=== PATIENT | female | born 1995 | race American Indian/Alaskan Native ===

== ENCOUNTER 2017-09-14 13:57 | Inpatient (IN) | payer MEDICAID ==
[2017-09-14] MEDS ORDERED: MAGNESIUM SULFATE 2GM/50ML 4 GM/100 ML BAG IV ONE (14:08)
[2017-09-14] MEDS ORDERED: NORMODYNE IV ONE ×3 (14:11→14:54)
[2017-09-14] MEDS ORDERED: MAGNESIUM SULFATE 2GM/50ML 2 GM/50 ML BAG IV ONE ×2 (14:22)
--- NOTE | 2017-09-14 14:40 | Emergency Department Report ---
ED General Adult HPI - General Chief complaint: Seizure Stated complaint: SEIZURE Time Seen by Provider: 09/14/17 14:20 Source: patient, family, EMS Mode of arrival: Stretcher Limitations: No Limitations - History of Present Illness Initial comments: Patient apparently suffered a witnessed generalized seizure. She is here with her or significant other. He states that they went to the OB doctor yesterday and the patient is corroborating this. They go to [facility]. They're confirming that they were told that there is no problem with this now 32 week gestation. They've had regular OB care. This is patient's first . She's never been told she had an elevated blood pressure during this . Patient denies a family history of seizures. She denies a personal history of seizures. -: Sudden Location: mouth (patient does complain of some tongue soreness) Radiation: non-radiation Quality: other Consistency: intermittent Improves with: none Worsens with: none Associated Symptoms: denies other symptoms Treatments Prior to Arrival: none ED Review of Systems ROS: Stated complaint: SEIZURE Other details as noted in HPI Constitutional: denies: chills, fever Eyes: denies: eye pain, eye discharge, vision change ENT: denies: ear pain, throat pain Respiratory: denies: cough, shortness of breath, wheezing Cardiovascular: denies: chest pain, palpitations Endocrine: no symptoms reported Gastrointestinal: denies: abdominal pain, nausea, diarrhea Genitourinary: denies: urgency, dysuria, discharge Musculoskeletal: denies: back pain, joint swelling, arthralgia Skin: denies: rash, lesions Neurological: denies: headache, weakness, paresthesias Psychiatric: denies: anxiety, depression Hematological/Lymphatic: denies: easy bleeding, easy bruising Other: States not feeling movement ED Past Medical Hx - Past Medical History Previous Medical History?: No - Surgical History Past Surgical History?: No - Social History Smoking Status: Never Smoker Substance Use Type: None ED Physical Exam - General Limitations: No Limitations General appearance: alert, anxious - Head Head exam: Present: atraumatic, normocephalic - Eye Eye exam: Present: normal appearance. Absent: scleral icterus - ENT ENT exam: Present: mucous membranes moist - Neck Neck exam: Present: normal inspection. Absent: tenderness, meningismus - Respiratory Respiratory exam: Present: normal lung sounds bilaterally. Absent: respiratory distress - Cardiovascular Cardiovascular Exam: Present: regular rate, normal rhythm. 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 Absent: tenderness - Extremities Exam Extremities exam: Present: normal inspection. Absent: pedal edema, calf tenderness - Back Exam Back exam: Present: normal inspection - Neurological Exam Neurological exam: Present: alert, oriented X3, CN II-XII intact. Absent: motor sensory deficit - Psychiatric Psychiatric exam: Present: normal affect, anxious - Skin Skin exam: Present: warm, dry, intact, normal color. Absent: rash ED Course Vital Signs 09/14/17 13:58 Temperature 98.2 F Pulse Rate 98 H Respiratory 16 Rate Blood Pressure 149/108 O2 Sat by Pulse 100 Oximetry - Reevaluation(s) Reevaluation #1: Patient was given labetalol and the first 4 g of magnesium. I immediately notified OB (Dr. Mcfadden's nurse alumni relations manager) the of findings and the need for monitoring. The nurse alumni relations manager stated to send the patient to L&D as soon as possible. 09/14/17 14:42 Reevaluation #2: Patient was transferred to L&D in stable condition. 09/14/17 14:43 Critical Care Time: Yes Critical care time in (mins) excluding proc time.: 35 Critical care attestation.: If time is entered above; I have spent that time in minutes in the direct care of this critically ill patient, excluding procedure time. ED Disposition Clinical Impression: Eclampsia, Seizure Disposition: DC-09 OP ADMIT IP TO THIS HOSP Is pt being admited?: Yes Does the pt Need Aspirin: No Condition: Stable Time of Disposition: 14:44
[2017-09-14] MEDS ORDERED: COLACE PO PRN (14:50)
[2017-09-14] MEDS ORDERED: ZOFRAN IV PRN ×2 (14:50→15:45)
[2017-09-14] MEDS ORDERED: ALUM-MAG HYDROX-SIMETH 200-200-20MG/5ML PO PRN (14:50)
[2017-09-14] MEDS ORDERED: TYLENOL PO PRN (14:50)
[2017-09-14] MEDS ORDERED: BENADRYL PO PRN (14:50)
[2017-09-14] MEDS ORDERED: MILK OF MAGNESIA PO PRN (14:50)
[2017-09-14] MEDS ORDERED: CALCIUM GLUCONATE IV ONE (14:52)
[2017-09-14] MEDS ORDERED: APRESOLINE IV PRN ×2 (14:52→18:24)
--- NOTE | 2017-09-14 14:59 | History and Physical Report ---
<CALDERON VALENZUELA - Last Filed: 09/14/17 15:11> History of Present Illness Date of examination: 09/14/17 Date of admission: 09/14/17 14:49 Chief complaint: arrived s/p seizure at home from ED (seizure witness by s/o), elevated b/p. no hx htn or pre-e History of present illness: ( records reviewed) reports JAMES x 3 days, routine visit yesterday with [facility], normotensive w / neg urine protein. began care @ 20 weeks with [facility] EDC 10/16/17 by LMP- 35+3 weeks Patient denies medical or surgical hx (EAB hx D&E in 2011 - noted on records not divulged by patient) HSV II + hx emotional concerns involving family and - per records, patient did not divulge this information. Past History Past Medical History: no pertinent history Past Surgical History: other (See HPI) Family/Genetic History: neural tube defect. denies: cystic fibrosis/trait Social history: lives with family, full code. denies: smoking, alcohol abuse, prescription drug abuse, IV drug use - Obstetrical History Expected Date of Delivery: 10/16/17 Actual Gestation: 35 Week(s) 3 Day(s) : 2 Para: 0 Hx # Term Pregnancies: 0 Number of Pregnancies: 0 Spontaneous Abortions: 0 Induced : 1 Number of Living Children: 0 Review of Systems All systems: negative Constitutional: other Gastrointestinal: nausea, vomiting (today after seizure) Neurological: lack of coordination, headaches, other (postictal) - Vital Signs Vital signs: Vital Signs Temp Pulse Resp BP Pulse Ox 98.2 F 98 H 16 149/108 100 09/14/17 13:58 09/14/17 13:58 09/14/17 13:58 09/14/17 13:58 09/14/17 13:58 Temp Pulse Resp BP Pulse Ox 98.2 F 87 16 153/104 98 09/14/17 13:58 09/14/17 14:57 09/14/17 14:13 09/14/17 14:54 09/14/17 14:57 Results All other labs normal. Assessment and Plan patient transferred from ED after eclamptic seizure at home, 22y/o @ 35+3 weeks, admission orders in EMR. Dr. Mcfadden consulted and after reviewing tracing - CAT 3 min variability, baseline 100 with, decision made to proceed with operative delivery. - Patient Problems (1) 35 weeks gestation of Current Visit: Yes Status: Acute (2) Eclampsia Current Visit: Yes Status: Acute <VERONICA MCFADDEN - Last Filed: 09/14/17 15:32> History of Present Illness Date of admission: 09/14/17 14:49 Medications and Allergies Active Meds: Active Medications Acetaminophen (Tylenol) 650 mg PO Q4H PRN PRN Reason: Pain MILD(1-3)/Fever >100.5/JAMES Al Hydrox/Mg Hydrox/Simethicone (Alum-Mag Hydrox-Simeth [id number]/5ml) 30 ml PO Q6H PRN PRN Reason: Indigestion Betamethasone Acet/Betameth SodPhos (Celestone Soluspan) 12 mg IM Q24HR KIMBERLY Stop: 09/16/17 10:01 Calcium Gluconate (Calcium Gluconate) 1,000 mg IV ONCE ONE Stop: 09/14/17 14:53 Diphenhydramine HCl (Benadryl) 25 mg PO Q6H PRN PRN Reason: Itching Docusate Sodium (Colace) 100 mg PO Q12H PRN PRN Reason: Constipation Fentanyl (Sublimaze) 50 mcg IV ONCE ONE Stop: 09/14/17 15:04 Lactated Ringer's (Lactated Ringers) 1,000 mls @ 125 mls/hr IV DIRECT KIMBERLY Magnesium Sulfate (Magnesium Sulfate 40gm/1000ml) 40 gm in 1,000 mls @ 50 mls/ hr IV TITR KIMBERLY; 2 GM/HR PRN Reason: Protocol Stop: 09/15/17 14:59 Oxytocin/Sodium Chloride (Pitocin/Ns 20 Unit/1000ml Drip) 20 units in 1,000 mls @ 0 mls/hr IV TITR KIMBERLY PRN Reason: As Directed Labetalol HCl (Normodyne) 20 mg IV ONCE ONE Stop: 09/14/17 14:55 Magnesium Hydroxide (Milk Of Magnesia) 30 ml PO QHS PRN PRN Reason: Laxative Effect Multivitamins/Iron/Calcium ( Vitamin) 1 each PO QDAY KIMBERLY Ondansetron HCl (Zofran) 4 mg IV Q6H PRN PRN Reason: Nausea And Vomiting - Vital Signs Vital signs: Vital Signs Temp Pulse Resp BP Pulse Ox 98.2 F 98 H 16 149/108 100 09/14/17 13:58 09/14/17 13:58 09/14/17 13:58 09/14/17 13:58 09/14/17 13:58 Temp Pulse Resp BP Pulse Ox 98.2 F 73 16 152/94 100 09/14/17 13:58 09/14/17 15:27 09/14/17 14:13 09/14/17 15:15 09/14/17 15:27 Results All other labs normal. Assessment and Plan 22yof [id number] eclamptic seizure witnessed by her , she a patient of [facility] , records now avaliable. THIAGO 10/16/2017. She now alert and appropriately responsive, Cat 3 FHT's, diagnosis explained to patient and her , cervix 0/0/-4, vtx by bedside US however, C/S discussed, dane encouraged and answered, pt agrees to proceed with c/s for cat 3 fht's remote from delivery. Consent signed by her ( patient received fentanyl her her JAMES).
[2017-09-14] MEDS ORDERED: MAGNESIUM SULFATE 40GM/1000ML 40 GM/1,000 ML BAG IV SCH (15:00)
[2017-09-14] MEDS ORDERED: PITOCin/NS 20 UNIT/1000ML DRIP 20 UNITS/1,000 ML BAG IV SCH ×2 (15:00→19:00)
[2017-09-14] MEDS ORDERED: LACTATED RINGERS 1,000 ML IV SCH ×2 (15:00→18:00)
[2017-09-14] MEDS ORDERED: SUBLIMAZE IV ONE (15:03)
[2017-09-14] MEDS ORDERED: SUBLIMAZE ONE (15:06)
[2017-09-14] MEDS ORDERED: BICITRA PO ONE (15:25)
[2017-09-14] MEDS ORDERED: PEPCID IV ONE (15:25)
[2017-09-14] MEDS ORDERED: REGLAN IV ONE (15:25)
--- NOTE | 2017-09-14 15:44 | Anesthesia Consultation ---
Anesthesia Consult and Med Hx Date of service: 09/14/17 - Airway Anesthetic Teeth Evaluation: Good ROM Head & Neck: Adequate Mental/Hyoid Distance: Adequate Mallampati Class: Class II - Pre-Operative Health Status ASA Pre-Surgery Classification: ASA3 Proposed Anesthetic Plan: General, Spinal - Cardiovascular System Hx Hypertension: Yes (PIH) - Central Nervous System Hx Seizures: Yes (earlier today - eclampsia) - Other Systems Hx Obesity: Yes (BMI 35.9)
[2017-09-14 15:45] LABS: Basophils % (Auto) 0.3 % (0.0-1.8); Eosinophils % (Auto) 0.1 % (0.0-4.3); Hematocrit 41.4 % (30.3-42.9); Hemoglobin 13.6 gm/dl (10.1-14.3); Mean Corpuscular HGB Conc 33 % (30-34); Mean Corpuscular Hemoglobin 31 pg (28-32); Mean Corpuscular Volume 95 fl (79-97); Platelet Count 111 K/mm3 (140-440); Red Blood Count 4.34 M/mm3 (3.65-5.03); Red Cell Distribution Width 13.8 % (13.2-15.2)
[2017-09-14] MEDS ORDERED: BENADRYL IV PRN (15:45)
[2017-09-14] MEDS ORDERED: PHENERGAN PR PRN (15:45)
[2017-09-14] MEDS ORDERED: NARCAN 0.4 MG/1 ML IV PRN ×2 (15:45→17:59)
[2017-09-14] MEDS ORDERED: MORPHINE IV PRN ×3 (15:45→17:59)
[2017-09-14] MEDS ORDERED: PHENERGAN PO PRN (15:45)
--- NOTE | 2017-09-14 15:45 | Anesthesia Day of Surgery ---
Anesthesia Day of Surgery - Day of Surgery Patient Examined: Yes Patient H&P Reviewed: Yes Patient is NPO: Yes (since 10AM)
[2017-09-14 15:57] LABS: Urine Drugs of Abuse Note Disclamer
[2017-09-14] MEDS ORDERED: ANCEF/STERILE WATER 2 GM/20 ML 2 GM/20 ML SYRINGE IV NR (16:00)
[2017-09-14] MEDS ORDERED: WATER FOR IRRIG STERILE IR ONE (16:00)
[2017-09-14] MEDS ORDERED: NACL 0.9% IR ONE (16:00)
[2017-09-14] MEDS ORDERED: SODIUM CHLORIDE FLUSH SYRINGE 10 ML IV SCH ×2 (16:00→18:00)
[2017-09-14] MEDS ORDERED: MORPHINE ONE (16:06)
[2017-09-14 16:13] LABS: Alanine Aminotransferase 14 units/L (7-56); Albumin 2.9 g/dL (3.9-5); Alkaline Phosphatase 91 units/L (35-129); Anion Gap 19 mmol/L; BUN/Creatinine Ratio 14; BUN/Creatinine Ratio 15; Blood Urea Nitrogen 15 mg/dL (7-17); Calcium 8.1 mg/dL (8.4-10.2); Carbon Dioxide 18 mmol/L (22-30); Chloride 105.8 mmol/L (98-107); Chloride 106.5 mmol/L (98-107); Glucose 72 mg/dL (65-100); Glucose 73 mg/dL (65-100); Potassium 4.9 mmol/L (3.6-5.0); Sodium 138 mmol/L (137-145); Sodium 139 mmol/L (137-145); Total Protein 5.7 g/dL (6.3-8.2)
[2017-09-14 16:14] LABS: Alanine Aminotransferase 14 units/L (7-56); Lactate Dehydrogenase 285 units/L (91-180); Uric Acid 9.9 mg/dL (3.5-7.6)
[2017-09-14 16:15] LABS: Alanine Aminotransferase 14 units/L (7-56); Albumin/Globulin Ratio 1.2 %; Alkaline Phosphatase 89 units/L (35-129); Total Protein 5.6 g/dL (6.3-8.2)
[2017-09-14 16:17] LABS: Bilirubin,Direct < 0.2 mg/dL (0-0.2)
[2017-09-14 16:29] LABS: Bilirubin,Urine NEG (Negative); Blood,Urine SM (Negative); Ketones,Urine NEG (Negative); Leukocyte Esterase,Urine NEG (Negative); Nitrite,Urine NEG (Negative); Urobilinogen,Urine < 2.0 mg/dL (<2.0)
[2017-09-14 16:31] LABS: Protein,Urine >500 mg/dL (Negative)
[2017-09-14] MEDS ORDERED: ZOFRAN ONE (16:38)
[2017-09-14] MEDS ORDERED: NEO SYNEPHRINE/NS Syringe(OR USE) IV ONE (17:00)
[2017-09-14 17:51] LABS: ISTAT Base Excess -11; ISTAT DEVICE 0; ISTAT HCO3 15.6; ISTAT PH 7.271 (7.35-7.45); ISTAT PO2 103 (80-105); ISTAT SO2 97; ISTAT TCO2 17
--- NOTE | 2017-09-14 17:57 | Post Operative Note ---
Pre-op diagnosis: C/S, eclampsia, NRFHT Post-op diagnosis: same Procedure: delivery, Low uterine transverse Anesthesia: spinal Surgeon: VERONICA RESENDIZ Estimated blood loss: other (800) Pathology: list (placenta) Specimen disposition: to lab Condition: critical Disposition: ICU
[2017-09-14] MEDS ORDERED: TUCKS PAD TP PRN (17:59)
[2017-09-14] MEDS ORDERED: PERCOCET 5/325 PO PRN (17:59)
[2017-09-14] MEDS ORDERED: LANSINOH TP PRN (17:59)
[2017-09-14] MEDS ORDERED: XANAX PO PRN (17:59)
[2017-09-14] MEDS ORDERED: DULCOLAX PR PRN (17:59)
[2017-09-14] MEDS ORDERED: ANCEF/NS 1 GM/50 ML 1 GM/50 ML BAG IV SCH (18:00)
--- NOTE | 2017-09-14 19:55 | Operative Report ---
Operative Report Operative Report: Date: 09/14/2017 Preoperative diagnosis: 1. Intrauterine at 35 weeks 2. Eclamptic seizure 3. No reassuring heart rate tracing with unfavorable cervix Postoperative diagnosis: 1. Intrauterine at 35 weeks 2. Eclamptic seizure 3. No reassuring heart rate tracing with unfavorable cervix 4. Intraoperative seizure Procedure: Low uterine transverse incision for delivery Surgeon: Melissa Mcfadden MD [employer] Developer: Yoana Dobbs Anesthesia: Spinal Anesthesiologist: Julio Rasheed M.D. Estimated blood loss: 800 mL Urine out: [] mL Findings: Live born female infant. Weight 4 lbs. 9 oz. Apgars 6 at 1 minute and 8 at 9 minutes. Grossly normal uterus. tubes and ovaries. Procedure: After risk, benefits, complications, consequences and alternatives for this procedure were discussed with patient and consents were reviewed and signed, she was taken to the OR where spinal anesthesia was placed. She was then placed in the left lateral tilt position, and prepped and draped in the usual sterile fashion. Timeout was performed, and an appropriate level of anesthesia was noted, a Pfannenstiel incision was made and extended to the fascia which was incised and extended in the lateral directions. The overlying fascia was sharply dissected away from the underlying rectus muscles in the superior and inferior directions. The midline was entered bluntly. The vesicouterine fold was incised and with blunt dissection the bladder flap was created. A transverse incision was made in the lower uterine segment and extended in superiolateral direction with finger fractionation. Light meconium fluid was noted. The infant was delivered from cephalic position. Mouth and nose were bulb suctioned. Cord was doubly clamped and cut. The infant was given to /resuscitation team present. The placenta was manually extracted. The uterus was then exteriorized and cleared of any further products of conception or placental tissue. The incision was reapproximated using 0 Vicryl in a running interlocking stitch. Grossly normal uterus, tubes and ovaries were noted. Once hemostasis was noted, the uterus was allowed back into the pelvic cavity. The pelvis was irrigated with warm normal saline. Again hemostasis was noted . Surgicel applied for further hemostasis. Interceed was then placed to prevent adhesions. Then attention was turned to the rectus muscles. At this point patient began to have a seizure. Rectus muscles were approximated using 0 Vicryl in 3 interrupted simple stitches. Once hemostasis was noted, the fascia was reapproximated using 0 Vicryl and some running stitch. Once hemostasis was noted skin incision was reapproximated using surgical stainless steel rianna. Counts were correct 3. The patient was taken to the intensive care unit.
[2017-09-14 21:22] LABS: Basophils % (Auto) 0.1 % (0.0-1.8); Hematocrit 36.7 % (30.3-42.9); Hemoglobin 12.3 gm/dl (10.1-14.3); Mean Corpuscular HGB Conc 34 % (30-34); Mean Corpuscular Hemoglobin 32 pg (28-32); Mean Corpuscular Volume 96 fl (79-97); Platelet Count 103 K/mm3 (140-440); Red Blood Count 3.84 M/mm3 (3.65-5.03); Red Cell Distribution Width 13.9 % (13.2-15.2)
[2017-09-14 21:47] LABS: Alanine Aminotransferase 13 units/L (7-56); Albumin 2.8 g/dL (3.9-5); Albumin/Globulin Ratio 1.2 %; Alkaline Phosphatase 79 units/L (35-129); Anion Gap 19 mmol/L; BUN/Creatinine Ratio 14; Blood Urea Nitrogen 14 mg/dL (7-17); Calcium 7.7 mg/dL (8.4-10.2); Carbon Dioxide 18 mmol/L (22-30); Chloride 105.3 mmol/L (98-107); Glucose 70 mg/dL (65-100); Sodium 137 mmol/L (137-145); Total Protein 5.2 g/dL (6.3-8.2)
[2017-09-14] MEDS ORDERED: BENADRYL IV ONE (23:06)
[2017-09-14] MEDS: PROCARDIA XL PO SCH (23:21)
[2017-09-15] MEDS ORDERED: D5LR 1,000 ML IV SCH (00:01)
[2017-09-15] MEDS: ceFAZolin 1 GM in NACL 0.9% 20 ML IV SCH ×2 (00:20→08:00)
--- NOTE | 2017-09-15 07:46 | Progress Note ---
Assessment and Plan - Patient Problems (1) delivery delivered Onset Date: ~09/14/17 Current Visit: Yes Status: Acute Plan to address problem: Pt requesting to advance diet Will start with liquids Lungs clear bilateral BS present Dressing D&I Will remove later today. (2) Eclampsia Onset Date: ~09/14/17 Current Visit: Yes Status: Acute Plan to address problem: No reported seizure activity since surgery yesterday Pt denies JAMES, blurred vision, chest pain this AM. BPs remain elevated. last Apresoline given @ 0500 this AM. Consulted with Will give procardia XL dose now and continue as ordered. MGSO4 to continue to complete 24hr therapy. Next Mag level due 0900. Pt's mom present in room. Discussed eclampsia and the events we are trying to prevent happening: another seizure, stroke. All questions were addressed. consulted Will advance diet as tolerated. Subjective - Subjective Date of service: 09/15/17 (pt remains in Unit) Patient reports: voiding normally (armstrong cath), flatus : doing well Objective - Vital Signs Latest vital signs: Vital Signs Temp Pulse Pulse Resp BP BP Pulse Ox 09/15/17 07:21 153/94 99 09/15/17 07:11 89 14 153/94 98 09/15/17 07:01 89 14 153/94 98 09/15/17 06:51 88 14 150/96 98 09/15/17 06:41 87 15 150/96 98 09/15/17 06:31 90 16 152/93 98 09/15/17 06:21 89 16 152/93 98 09/15/17 06:11 90 19 159/90 98 09/15/17 06:01 90 16 159/90 98 09/15/17 05:51 91 H 13 154/105 99 09/15/17 05:41 92 H 14 154/105 99 09/15/17 05:31 92 H 18 146/92 98 09/15/17 05:21 92 H 17 154/105 99 09/15/17 05:14 89 154/105 09/15/17 05:11 88 15 154/105 98 09/15/17 05:01 87 17 164/107 98 09/15/17 04:51 91 H 14 155/106 98 09/15/17 04:41 91 H 15 155/106 98 09/15/17 04:31 91 H 15 154/106 97 09/15/17 04:21 92 H 14 154/106 98 09/15/17 04:11 91 H 15 149/95 98 09/15/17 04:01 90 18 160/106 99 09/15/17 04:00 90 100 09/15/17 03:51 149/95 98 09/15/17 03:41 96 H 22 149/95 98 09/15/17 03:31 88 19 154/101 99 09/15/17 03:20 96 H 19 154/101 99 09/15/17 03:11 95 H 20 154/92 100 09/15/17 03:01 100 H 18 154/92 99 09/15/17 02:51 154/92 98 09/15/17 02:41 147/100 99 09/15/17 02:31 147/100 99 09/15/17 02:21 97 H 21 147/100 99 09/15/17 02:11 86 18 147/100 99 09/15/17 02:00 94 H 14 145/96 99 09/15/17 01:51 97 H 15 145/96 96 09/15/17 01:40 87 16 145/96 98 09/15/17 01:31 86 17 146/93 98 09/15/17 01:20 85 17 146/93 99 09/15/17 01:11 86 18 143/86 98 09/15/17 01:00 85 17 155/100 98 09/15/17 00:51 95 H 16 143/86 99 09/15/17 00:40 89 17 143/86 99 09/15/17 00:31 86 16 150/102 98 09/15/17 00:20 97 H 21 149/103 100 09/15/17 00:11 85 19 150/102 100 09/15/17 00:01 105 H 21 150/102 99 09/14/17 23:51 85 12 137/98 97 09/14/17 23:40 88 12 137/98 100 09/14/17 23:31 90 12 134/86 100 09/14/17 23:21 91 H 9 L 134/86 100 09/14/17 23:11 87 14 134/86 98 09/14/17 23:01 90 17 134/86 99 09/14/17 23:00 103 H 18 100 09/14/17 22:51 89 15 134/86 98 09/14/17 22:41 87 16 134/86 98 09/14/17 22:31 85 17 161/104 98 17 22:21 81 15 138/86 100 09/14/17 22:11 83 10 L 161/104 99 09/14/17 22:00 84 16 161/104 98 09/14/17 21:51 87 13 156/101 100 09/14/17 21:49 83 156/101 99 17 21:31 86 13 156/101 99 09/14/17 21:21 79 11 L 156/101 100 09/14/17 21:11 81 17 156/101 99 09/14/17 21:01 73 13 156/101 98 09/14/17 20:57 77 15 150/104 98 09/14/17 20:51 89 16 148/96 97 09/14/17 20:41 88 18 150/104 98 09/14/17 20:31 75 15 150/104 99 09/14/17 20:21 72 15 150/104 98 09/14/17 20:11 71 10 L 150/104 100 17 20:01 74 14 150/104 97 09/14/17 20:00 98 09/14/17 19:58 99 17 19:51 74 16 134/95 99 17 19:41 68 16 134/95 98 17 19:31 82 12 139/88 99 17 19:21 77 18 137/86 98 09/14/17 19:11 77 16 137/86 99 17 19:01 76 24 136/91 97 17 18:51 68 13 128/85 98 17 18:41 69 16 129/83 100 17 18:31 73 17 134/88 98 17 18:28 97 17 18:21 73 19 134/88 98 17 18:16 67 18 98 17 18:11 74 16 134/88 99 17 18:01 73 15 134/88 100 17 17:51 77 20 126/73 97 09/14/17 17:41 82 14 126/73 97 09/14/17 17:31 72 16 126/73 99 09/14/17 17:21 74 16 126/73 99 09/14/17 17:17 97 09/14/17 16:02 70 100 09/14/17 16:01 73 138/82 09/14/17 16:00 77 90 09/14/17 15:57 64 100 09/14/17 15:56 65 179/105 09/14/17 15:52 79 100 09/14/17 15:50 67 168/107 09/14/17 15:48 103 H 86 09/14/17 15:47 83 98 09/14/17 15:46 80 157/95 09/14/17 15:42 68 100 09/14/17 15:40 67 165/113 09/14/17 15:37 72 100 09/14/17 15:32 75 100 09/14/17 15:27 73 100 09/14/17 15:22 75 100 09/14/17 15:17 75 100 09/14/17 15:15 76 152/94 09/14/17 15:12 86 139/93 100 09/14/17 15:07 75 100 09/14/17 15:06 75 150/95 09/14/17 15:04 63 92 09/14/17 15:02 78 100 09/14/17 15:01 85 155/99 09/14/17 14:57 87 98 09/14/17 14:54 85 153/104 09/14/17 14:13 92 H 16 148/94 100 09/14/17 13:58 98.2 F 98 H 16 149/108 100 Intake and Output 09/14/17 09/15/17 09/15/17 22:59 06:59 14:59 Intake Total 150 Output Total 300 820 Balance -300 -820 150 Intake: Oral 150 Output: Urine 300 820 Indwelling Catheter 250 820 Uretheral (Armstrong) 50 Other: Total, Intake Amount 150 Total, Output Amount 250 420 Voiding Method Indwelling Catheter Indwelling Catheter Estimated Blood Loss 800 - Exam Breasts: Present: normal Cardiovascular: Present: Regular rate Lungs: Present: Clear to auscultation, Normal air movement Abdomen: Present: normal appearance, soft, normal bowel sounds Uterus: Present: normal, fundal height below umbilicus Extremities: Present: edema Deep Tendon Reflex Grade: Normal but brisk +3 Incision: Present: normal, dry, intact, dressed - Labs Labs: Abnormal lab results 09/14/17 09/14/17 09/14/17 Range/Units 15:23 15:23 15:23 Plt Count 111 L (140-440) K/mm3 [place] % (Auto) 8.9 H (0.0-7.3) % Seg Neutrophils % (40.0-70.0) % Seg Neutrophils # (1.8-7.7) K/mm3 POC ABG pH (7.35-7.45) POC ABG pCO2 (35-45) Carbon Dioxide 18 L (22-30) mmol/L Uric Acid (3.5-7.6) mg/dL Calcium 8.1 L (8.4-10.2) mg/dL Magnesium (1.7-2.3) mg/dL Lactate Dehydrogenase (91-180) units/L Total Protein 5.6 L (6.3-8.2) g/dL Albumin 3.0 L (3.9-5) g/dL 09/14/17 09/14/17 09/14/17 Range/Units 15:23 15:23 17:34 Plt Count (140-440) K/mm3 [place] % (Auto) (0.0-7.3) % Seg Neutrophils % (40.0-70.0) % Seg Neutrophils # (1.8-7.7) K/mm3 POC ABG pH 7.271 L (7.35-7.45) POC ABG pCO2 34.0 L (35-45) Carbon Dioxide 18 L (22-30) mmol/L Uric Acid 9.9 H (3.5-7.6) mg/dL Calcium 8.1 L (8.4-10.2) mg/dL Magnesium (1.7-2.3) mg/dL Lactate Dehydrogenase 285 H (91-180) units/L Total Protein 5.7 L (6.3-8.2) g/dL Albumin 2.9 L (3.9-5) g/dL 09/14/17 09/14/17 09/15/17 Range/Units 20:53 20:53 02:46 Plt Count 103 L (140-440) K/mm3 [place] % (Auto) (0.0-7.3) % Seg Neutrophils % 79.4 H (40.0-70.0) % Seg Neutrophils # 7.9 H (1.8-7.7) K/mm3 POC ABG pH (7.35-7.45) POC ABG pCO2 (35-45) Carbon Dioxide 18 L (22-30) mmol/L Uric Acid (3.5-7.6) mg/dL Calcium 7.7 L (8.4-10.2) mg/dL Magnesium 5.20 H 6.60 H (1.7-2.3) mg/dL Lactate Dehydrogenase (91-180) units/L Total Protein 5.2 L (6.3-8.2) g/dL Albumin 2.8 L (3.9-5) g/dL
[2017-09-15] MEDS ORDERED: TYLENOL PO PRN (08:06)
--- NOTE | 2017-09-15 08:40 | Progress Note ---
Subjective Date of service: 09/15/17 Interval history: 1st POD after Patient is in the bed in ICU. Alert, oriented. Pain is well controlled with pain meds. Blood pressure elevated but stable. Has not ambulated yet due to Mg2SO4 infusion. No residual neurological deficit. No anesthesia complications Objective - Constitutional Vitals: Vital Signs - 12hr 09/14/17 09/14/17 09/14/17 20:41 20:51 20:57 Pulse Rate 88 89 77 Pulse Rate [ From Monitor] Respiratory 18 16 15 Rate Blood Pressure 150/104 148/96 150/104 O2 Sat by Pulse 98 97 98 Oximetry 09/14/17 09/14/17 09/14/17 21:01 21:11 21:21 Pulse Rate 73 81 79 Pulse Rate [ From Monitor] Respiratory 13 17 11 L Rate Blood Pressure 156/101 156/101 156/101 O2 Sat by Pulse 98 99 100 Oximetry 09/14/17 09/14/17 09/14/17 21:31 21:49 21:51 Pulse Rate 86 83 87 Pulse Rate [ From Monitor] Respiratory 13 13 Rate Blood Pressure 156/101 156/101 156/101 O2 Sat by Pulse 99 99 100 Oximetry 09/14/17 09/14/17 09/14/17 22:00 22:11 22:21 Pulse Rate 84 83 81 Pulse Rate [ From Monitor] Respiratory 16 10 L 15 Rate Blood Pressure 161/104 161/104 138/86 O2 Sat by Pulse 98 99 100 Oximetry 09/14/17 09/14/17 09/14/17 22:31 22:41 22:51 Pulse Rate 85 87 89 Pulse Rate [ From Monitor] Respiratory 17 16 15 Rate Blood Pressure 161/104 134/86 134/86 O2 Sat by Pulse 98 98 98 Oximetry 09/14/17 09/14/17 09/14/17 23:00 23:01 23:11 Pulse Rate 90 87 Pulse Rate [ 103 H From Monitor] Respiratory 18 17 14 Rate Blood Pressure 134/86 134/86 O2 Sat by Pulse 100 99 98 Oximetry 09/14/17 09/14/17 09/14/17 23:21 23:31 23:40 Pulse Rate 91 H 90 88 Pulse Rate [ From Monitor] Respiratory 9 L 12 12 Rate Blood Pressure 134/86 134/86 137/98 O2 Sat by Pulse 100 100 100 Oximetry 12/09/15/17 09/15/17 23:51 00:01 00:11 Pulse Rate 85 105 H 85 Pulse Rate [ From Monitor] Respiratory 12 21 19 Rate Blood Pressure 137/98 150/102 150/102 O2 Sat by Pulse 97 99 100 Oximetry 09/15/17 09/15/17 09/15/17 00:20 00:31 00:40 Pulse Rate 97 H 86 89 Pulse Rate [ From Monitor] Respiratory 21 16 17 Rate Blood Pressure 149/103 150/102 143/86 O2 Sat by Pulse 100 98 99 Oximetry 09/15/17 09/15/17 09/15/17 00:51 01:00 01:11 Pulse Rate 95 H 85 86 Pulse Rate [ From Monitor] Respiratory 16 17 18 Rate Blood Pressure 143/86 155/100 143/86 O2 Sat by Pulse 99 98 98 Oximetry 09/15/17 09/15/17 09/15/17 01:20 01:31 01:40 Pulse Rate 85 86 87 Pulse Rate [ From Monitor] Respiratory 17 17 16 Rate Blood Pressure 146/93 146/93 145/96 O2 Sat by Pulse 99 98 98 Oximetry 09/15/17 09/15/17 09/15/17 01:51 02:00 02:11 Pulse Rate 97 H 94 H 86 Pulse Rate [ From Monitor] Respiratory 15 14 18 Rate Blood Pressure 145/96 145/96 147/100 O2 Sat by Pulse 96 99 99 Oximetry 09/15/17 09/15/17 09/15/17 02:21 02:31 02:41 Pulse Rate 97 H Pulse Rate [ From Monitor] Respiratory 21 Rate Blood Pressure 147/100 147/100 147/100 O2 Sat by Pulse 99 99 99 Oximetry 09/15/17 09/15/17 09/15/17 02:51 03:01 03:11 Pulse Rate 100 H 95 H Pulse Rate [ From Monitor] Respiratory 18 20 Rate Blood Pressure 154/92 154/92 154/92 O2 Sat by Pulse 98 99 100 Oximetry 09/15/17 09/15/17 09/15/17 03:20 03:31 03:41 Pulse Rate 96 H 88 96 H Pulse Rate [ From Monitor] Respiratory 19 19 22 Rate Blood Pressure 154/101 154/101 149/95 O2 Sat by Pulse 99 99 98 Oximetry 09/15/17 09/15/17 09/15/17 03:51 04:00 04:01 Pulse Rate 90 Pulse Rate [ 90 From Monitor] Respiratory 18 Rate Blood Pressure 149/95 160/106 O2 Sat by Pulse 98 100 99 Oximetry 09/15/17 09/15/17 09/15/17 04:11 04:21 04:31 Pulse Rate 91 H 92 H 91 H Pulse Rate [ From Monitor] Respiratory 15 14 15 Rate Blood Pressure 149/95 154/106 154/106 O2 Sat by Pulse 98 98 97 Oximetry 09/15/17 09/15/17 09/15/17 04:41 04:51 05:01 Pulse Rate 91 H 91 H 87 Pulse Rate [ From Monitor] Respiratory 15 14 17 Rate Blood Pressure 155/106 155/106 164/107 O2 Sat by Pulse 98 98 98 Oximetry 09/15/17 09/15/17 09/15/17 05:11 05:14 05:21 Pulse Rate 88 89 92 H Pulse Rate [ From Monitor] Respiratory 15 17 Rate Blood Pressure 154/105 154/105 154/105 O2 Sat by Pulse 98 99 Oximetry 09/15/17 09/15/17 09/15/17 05:31 05:41 05:51 Pulse Rate 92 H 92 H 91 H Pulse Rate [ From Monitor] Respiratory 18 14 13 Rate Blood Pressure 146/92 154/105 154/105 O2 Sat by Pulse 98 99 99 Oximetry 09/15/17 09/15/17 09/15/17 06:01 06:11 06:21 Pulse Rate 90 90 89 Pulse Rate [ From Monitor] Respiratory 16 19 16 Rate Blood Pressure 159/90 159/90 152/93 O2 Sat by Pulse 98 98 98 Oximetry 09/15/17 09/15/17 09/15/17 06:31 06:41 06:51 Pulse Rate 90 87 88 Pulse Rate [ From Monitor] Respiratory 16 15 14 Rate Blood Pressure 152/93 150/96 150/96 O2 Sat by Pulse 98 98 98 Oximetry 09/15/17 09/15/17 09/15/17 07:01 07:11 07:21 Pulse Rate 89 89 Pulse Rate [ From Monitor] Respiratory 14 14 Rate Blood Pressure 153/94 153/94 153/94 O2 Sat by Pulse 98 98 99 Oximetry - Labs CBC & Chem 7: 09/14/17 20:53 09/14/17 20:53 Labs: Abnormal lab results 09/14/17 09/14/17 09/14/17 Range/Units 15:23 15:23 15:23 Plt Count 111 L (140-440) K/mm3 [place] % (Auto) 8.9 H (0.0-7.3) % Seg Neutrophils % (40.0-70.0) % Seg Neutrophils # (1.8-7.7) K/mm3 POC ABG pH (7.35-7.45) POC ABG pCO2 (35-45) Carbon Dioxide 18 L (22-30) mmol/L Uric Acid (3.5-7.6) mg/dL Calcium 8.1 L (8.4-10.2) mg/dL Magnesium (1.7-2.3) mg/dL Lactate Dehydrogenase (91-180) units/L Total Protein 5.6 L (6.3-8.2) g/dL Albumin 3.0 L (3.9-5) g/dL 09/14/17 09/14/17 09/14/17 Range/Units 15:23 15:23 17:34 Plt Count (140-440) K/mm3 [place] % (Auto) (0.0-7.3) % Seg Neutrophils % (40.0-70.0) % Seg Neutrophils # (1.8-7.7) K/mm3 POC ABG pH 7.271 L (7.35-7.45) POC ABG pCO2 34.0 L (35-45) Carbon Dioxide 18 L (22-30) mmol/L Uric Acid 9.9 H (3.5-7.6) mg/dL Calcium 8.1 L (8.4-10.2) mg/dL Magnesium (1.7-2.3) mg/dL Lactate Dehydrogenase 285 H (91-180) units/L Total Protein 5.7 L (6.3-8.2) g/dL Albumin 2.9 L (3.9-5) g/dL 09/14/17 09/14/17 09/15/17 Range/Units 20:53 20:53 02:46 Plt Count 103 L (140-440) K/mm3 [place] % (Auto) (0.0-7.3) % Seg Neutrophils % 79.4 H (40.0-70.0) % Seg Neutrophils # 7.9 H (1.8-7.7) K/mm3 POC ABG pH (7.35-7.45) POC ABG pCO2 (35-45) Carbon Dioxide 18 L (22-30) mmol/L Uric Acid (3.5-7.6) mg/dL Calcium 7.7 L (8.4-10.2) mg/dL Magnesium 5.20 H 6.60 H (1.7-2.3) mg/dL Lactate Dehydrogenase (91-180) units/L Total Protein 5.2 L (6.3-8.2) g/dL Albumin 2.8 L (3.9-5) g/dL
[2017-09-15] MEDS ORDERED: PITOCin/NS 20 UNIT/1000ML DRIP 20 UNITS/1,000 ML BAG IV SCH (09:00)
[2017-09-15] MEDS ORDERED: PRENATAL VITAMIN PO SCH (10:00)
[2017-09-15] MEDS ORDERED: CELESTONE SOLUSPAN IM SCH (10:00)
--- NOTE | 2017-09-15 10:27 | Event Note ---
Date: 09/15/17 ([facility] note) As per 's order stop MGSO4 Mag Level >7 Stop Pitocin. Start D5LR as maintenance fluid.
--- NOTE | 2017-09-15 11:01 | Consultation ---
History of Present Illness - Reason for Consult Consult date: 09/15/17 Seizure secondary to pre-eclampsia Requesting physician: VERONICA RESENDIZ - History of Present Illness 22 y/o female admitted with pre-eclampsia. Had done secondary to seizure activity. Given Mag in mother baby and some after . Given post-ictal state, OB concerned so asked for transfer and monitoring to ICU. Patient, today is awake and alert. On room air. Elevated mag levels but still has normal neuro function and good reflexes. No further seizures. Past History Social history: lives with family, full code. denies: smoking, alcohol abuse, prescription drug abuse, IV drug use Medications and Allergies Allergies Allergy/AdvReac Type Severity Reaction Status Date / Time No Known Allergies Allergy Verified 09/14/17 15:28 Active Meds: Active Medications Acetaminophen (Tylenol) 650 mg PO Q4H PRN PRN Reason: Pain, Mild (1-3) Alprazolam (Xanax) 0.25 mg PO Q8H PRN PRN Reason: Anxiety Bisacodyl (Dulcolax) 10 mg [place] QDAY PRN PRN Reason: constipation unrelieved by MOM Hydralazine HCl (Apresoline) 10 mg IV ONCE PRN PRN Reason: Hypertension Last Admin: 09/15/17 05:14 Dose: 10 mg Magnesium Sulfate (Magnesium Sulfate 40gm/1000ml) 40 gm in 1,000 mls @ 50 mls/ hr IV TITR KIMBERLY; 2 GM/HR PRN Reason: Protocol Stop: 09/15/17 14:59 Last Admin: 09/14/17 17:44 Dose: 2 gm/hr, 50 mls/hr Dextrose/Lactated Ringer's (D5lr) 1,000 mls @ 50 mls/hr IV DIRECT KIMBERLY Ketorolac Tromethamine (Toradol) 30 mg IV Q6H PRN PRN Reason: Pain, Moderate (4-6) Stop: 09/19/17 15:45 Magnesium Hydroxide (Milk Of Magnesia) 30 ml PO QHS PRN PRN Reason: Laxative Effect Morphine Sulfate (Morphine) 2 mg IV Q4H PRN PRN Reason: Pain, Moderate (4-6) Morphine Sulfate (Morphine) 4 mg IV Q4H PRN PRN Reason: Pain , Severe (7-10) Multi-Ingredient Ointment (Lansinoh) 1 applic TP PRN PRN PRN Reason: dryness/cracking Naloxone HCl (Narcan 0.4 Mg/1 Ml) 0.1 mg IV Q2MIN PRN PRN Reason: Res Rate </= 8 or 02 SAT < 92% Nifedipine (Procardia Xl) 30 mg PO Q12HR [facility] Last Admin: 09/14/17 23:21 Dose: Not Given Ondansetron HCl (Zofran) 4 mg IV Q6H PRN PRN Reason: Nausea And Vomiting Last Admin: 09/14/17 22:13 Dose: 4 mg Oxycodone/Acetaminophen (Percocet 5/325) 2 tab PO Q6H PRN PRN Reason: Pain, Moderate (4-6) Promethazine HCl (Phenergan) 25 mg PO Q6H PRN PRN Reason: Nausea And Vomiting Promethazine HCl (Phenergan) 25 mg MI Q6H PRN PRN Reason: Nausea And Vomiting Sodium Chloride (Sodium Chloride Flush Syringe 10 Ml) 10 ml IV PRN [facility] Witch [place]/Glycerin (Tucks Pad) 1 each TP PRN PRN PRN Reason: Hemorrhoids/cleansing/soothing Review of Systems All systems: negative Exam - Constitutional Vitals: Temp Pulse Resp BP Pulse Ox 98.2 F 89 14 153/94 99 09/14/17 13:58 09/15/17 07:11 09/15/17 07:11 09/15/17 07:21 09/15/17 07:21 General appearance: Present: no acute distress, well-nourished, obese - EENT Eyes: Present: PERRL, EOM intact ENT: hearing intact, clear oral mucosa, dentition normal - Neck Neck: Present: supple, normal ROM - Respiratory Respiratory effort: normal Respiratory: bilateral: CTA - Cardiovascular Rhythm: regular Heart Sounds: Present: S1 & S2 - Extremities Extremities: no ischemia, pulses intact, pulses symmetrical Peripheral Pulses: within normal limits - Abdominal General gastrointestinal: Present: soft, non-tender, normal bowel sounds Female genitourinary: Present: deferred - Rectal Rectal Exam: deferred - Integumentary Integumentary: Present: clear, warm, dry - Musculoskeletal Musculoskeletal: strength equal bilaterally - Neurologic Neurologic: CNII-XII intact Results - Labs CBC & Chem 7: 09/14/17 20:53 09/14/17 20:53 Labs: Abnormal lab results 09/14/17 09/14/17 09/14/17 Range/Units 15:23 15:23 15:23 Plt Count 111 L (140-440) K/mm3 [place] % (Auto) 8.9 H (0.0-7.3) % Seg Neutrophils % (40.0-70.0) % Seg Neutrophils # (1.8-7.7) K/mm3 POC ABG pH (7.35-7.45) POC ABG pCO2 (35-45) Carbon Dioxide 18 L (22-30) mmol/L Uric Acid (3.5-7.6) mg/dL Calcium 8.1 L (8.4-10.2) mg/dL Magnesium (1.7-2.3) mg/dL Lactate Dehydrogenase (91-180) units/L Total Protein 5.6 L (6.3-8.2) g/dL Albumin 3.0 L (3.9-5) g/dL 09/14/17 09/14/17 09/14/17 Range/Units 15:23 15:23 17:34 Plt Count (140-440) K/mm3 [place] % (Auto) (0.0-7.3) % Seg Neutrophils % (40.0-70.0) % Seg Neutrophils # (1.8-7.7) K/mm3 POC ABG pH 7.271 L (7.35-7.45) POC ABG pCO2 34.0 L (35-45) Carbon Dioxide 18 L (22-30) mmol/L Uric Acid 9.9 H (3.5-7.6) mg/dL Calcium 8.1 L (8.4-10.2) mg/dL Magnesium (1.7-2.3) mg/dL Lactate Dehydrogenase 285 H (91-180) units/L Total Protein 5.7 L (6.3-8.2) g/dL Albumin 2.9 L (3.9-5) g/dL 09/14/17 09/14/17 09/15/17 Range/Units 20:53 20:53 02:46 Plt Count 103 L (140-440) K/mm3 [place] % (Auto) (0.0-7.3) % Seg Neutrophils % 79.4 H (40.0-70.0) % Seg Neutrophils # 7.9 H (1.8-7.7) K/mm3 POC ABG pH (7.35-7.45) POC ABG pCO2 (35-45) Carbon Dioxide 18 L (22-30) mmol/L Uric Acid (3.5-7.6) mg/dL Calcium 7.7 L (8.4-10.2) mg/dL Magnesium 5.20 H 6.60 H (1.7-2.3) mg/dL Lactate Dehydrogenase (91-180) units/L Total Protein 5.2 L (6.3-8.2) g/dL Albumin 2.8 L (3.9-5) g/dL 09/15/17 Range/Units 09:22 Plt Count (140-440) K/mm3 [place] % (Auto) (0.0-7.3) % Seg Neutrophils % (40.0-70.0) % Seg Neutrophils # (1.8-7.7) K/mm3 POC ABG pH (7.35-7.45) POC ABG pCO2 (35-45) Carbon Dioxide (22-30) mmol/L Uric Acid (3.5-7.6) mg/dL Calcium (8.4-10.2) mg/dL Magnesium 7.40 H (1.7-2.3) mg/dL Lactate Dehydrogenase (91-180) units/L Total Protein (6.3-8.2) g/dL Albumin (3.9-5) g/dL Assessment and Plan 22 y/o with pre-eclampsia status post with seizure, now resolved with mag therapy. 1. Will stop mag and pitocin drips 2. Feed patient 3. OOB to chair and ambulate as tolerated 4. Stable for transition to mother baby.
[2017-09-15] MEDS: PROCARDIA XL PO SCH ×2 (12:07→22:28)
--- NOTE | 2017-09-15 12:59 | Event Note ---
Date: 09/15/17 Patient c/o JAMES denies visual disturbances Just received procardia BP153//94 will give analgesic. We'll continue to monitor blood pressure and signs of systems of preeclampsia
[2017-09-15] MEDS: NORCO 5/325 PO PRN ×2 (14:15→22:28)
[2017-09-15] MEDS: TORADOL IV PRN (16:15)
--- NOTE | 2017-09-15 19:02 | Event Note ---
Date: 09/15/17 Patient now on floor. Patient states that headache has resolved she has no complaints of the visual disturbances. Blood pressures still l140s 150s over 90s. We'll increase her ProcardiaXL to 60 mg and continue to watch blood pressure.
[2017-09-15 20:52] LABS: Basophils % (Auto) 0.1 % (0.0-1.8); Eosinophils % (Auto) 0.1 % (0.0-4.3); Hematocrit 36.7 % (30.3-42.9); Mean Corpuscular HGB Conc 33 % (30-34); Mean Corpuscular Hemoglobin 31 pg (28-32); Mean Corpuscular Volume 96 fl (79-97); Platelet Count 118 K/mm3 (140-440); Red Blood Count 3.83 M/mm3 (3.65-5.03); Red Cell Distribution Width 14.2 % (13.2-15.2); White Blood Count 9.1 K/mm3 (4.5-11.0)
[2017-09-15 21:25] LABS: Alanine Aminotransferase 15 units/L (7-56); Albumin 2.9 g/dL (3.9-5); Albumin/Globulin Ratio 1.1 %; Alkaline Phosphatase 84 units/L (35-129); Anion Gap 19 mmol/L; BUN/Creatinine Ratio 10; Blood Urea Nitrogen 11 mg/dL (7-17); Calcium 6.5 mg/dL (8.4-10.2); Carbon Dioxide 19 mmol/L (22-30); Chloride 97.1 mmol/L (98-107); Glucose 104 mg/dL (65-100); Potassium 4.5 mmol/L (3.6-5.0); Sodium 131 mmol/L (137-145); Total Protein 5.6 g/dL (6.3-8.2)
[2017-09-16] MEDS: NORCO 5/325 PO PRN ×3 (02:51→21:57)
[2017-09-16] MEDS: TORADOL IV PRN (02:52)
[2017-09-16] MEDS: MOTRIN PO PRN ×2 (05:48→18:25)
--- NOTE | 2017-09-16 07:37 | Progress Note ---
Assessment and Plan - Patient Problems (1) delivery delivered Onset Date: ~09/14/17 Current Visit: Yes Status: Acute Plan to address problem: pt resting quietly No c/o voiced Denies JAMES, blurred vision, chest pain BPs now in the 120/70s FF below umb Lochia small Incision D&I Rianna for closure H&H 12 stable from preop No s/sx of anemia. Doing well s/p c/s; eclamptic seizure. P: continue pathway Adv as tolerated. Neuro consult ordered. aware. (2) Eclampsia Onset Date: ~09/14/17 Current Visit: Yes Status: Acute Subjective - Subjective Date of service: 09/16/17 (Pt alert Oriented to time and place) Principal diagnosis: Day # 2 s/p section; Eclampsia Patient reports: appetite normal, voiding normally, pain well controlled : doing well Objective - Vital Signs Latest vital signs: Vital Signs Temp Pulse Resp BP BP Pulse Ox 09/16/17 04:50 99.4 F 110 H 20 120/67 95 09/16/17 00:05 98.7 F 101 H 20 112/61 97 09/15/17 22:28 16 09/15/17 21:32 98.6 F 97 H 20 124/74 96 09/15/17 16:15 20 09/15/17 15:00 97.8 F 87 20 146/92 09/15/17 14:31 99 H 16 153/95 98 09/15/17 14:21 97 H 19 153/95 98 09/15/17 14:11 93 H 18 145/97 99 09/15/17 14:01 86 15 145/97 98 09/15/17 13:51 95 H 17 151/100 98 09/15/17 13:41 94 H 19 151/100 98 09/15/17 13:31 84 16 147/95 98 09/15/17 13:21 86 16 147/95 98 09/15/17 13:11 83 15 152/100 98 09/15/17 13:01 83 17 152/100 98 09/15/17 12:51 83 16 149/101 99 09/15/17 12:41 81 16 155/100 98 09/15/17 12:31 83 16 156/100 98 09/15/17 12:21 84 15 156/100 98 09/15/17 12:11 83 17 154/96 99 09/15/17 12:01 82 16 154/96 98 09/15/17 11:51 85 16 158/102 99 09/15/17 11:41 90 18 158/102 99 09/15/17 11:31 87 17 153/101 97 09/15/17 11:21 87 15 153/101 98 09/15/17 11:11 84 16 156/99 98 09/15/17 11:01 85 16 156/99 98 09/15/17 10:51 87 15 151/97 98 09/15/17 10:41 86 14 151/97 98 09/15/17 10:31 90 15 149/98 97 09/15/17 10:21 91 H 14 149/98 97 09/15/17 10:11 92 H 16 155/101 97 09/15/17 10:01 92 H 15 155/101 97 09/15/17 09:51 91 H 17 154/91 97 09/15/17 09:41 91 H 16 145/94 98 09/15/17 09:31 89 16 154/91 97 09/15/17 09:21 87 14 154/91 98 09/15/17 09:11 87 14 156/97 98 09/15/17 09:01 91 H 16 153/100 97 09/15/17 08:51 90 17 153/100 98 09/15/17 08:41 153/100 98 09/15/17 08:31 153/100 98 09/15/17 08:21 153/100 98 09/15/17 08:11 85 15 153/100 98 09/15/17 08:01 94 H 20 153/100 98 09/15/17 07:51 88 15 153/100 98 09/15/17 07:41 89 19 153/100 98 Intake and Output 09/15/17 09/16/17 09/16/17 22:59 06:59 14:59 Output Total 350 Balance -350 Output: Urine 350 Indwelling Catheter 350 Other: Total, Output Amount 350 Voiding Method Toilet - Exam Breasts: Present: normal Cardiovascular: Present: Regular rate Lungs: Present: Clear to auscultation, Normal air movement Abdomen: Present: normal appearance, soft, normal bowel sounds Vulva: both: normal Uterus: Present: normal, firm, fundal height below umbilicus Extremities: Present: edema Deep Tendon Reflex Grade: Normal but brisk +3 Incision: Present: normal, dry, intact (rianna for closure; no redness/swelling ) - Labs Labs: Abnormal lab results 09/15/17 09/15/17 09/15/17 Range/Units 09:22 20:16 20:16 Plt Count 118 L (140-440) K/mm3 Seg Neutrophils % 74.5 H (40.0-70.0) % Sodium 131 L (137-145) mmol/L Chloride 97.1 L (98-107) mmol/L Carbon Dioxide 19 L (22-30) mmol/L Glucose 104 H (65-100) mg/dL Calcium 6.5 L D (8.4-10.2) mg/dL Magnesium 7.40 H (1.7-2.3) mg/dL Total Protein 5.6 L (6.3-8.2) g/dL Albumin 2.9 L (3.9-5) g/dL
[2017-09-16] MEDS: PROCARDIA XL PO SCH ×2 (10:22→21:55)
--- NOTE | 2017-09-16 13:55 | Progress Note ---
Assessment and Plan 22 y/o with pre-eclampsia status post with seizure, now resolved with mag therapy. 1.Will sign off. Call if questions. Subjective Date of service: 09/16/17 Principal diagnosis: Day # 2 s/p section; Eclampsia Interval history: Successful transfer out of unit. Weaned to room air. Objective - Constitutional Vitals: Vital Signs - 12hr 09/16/17 09/16/17 04:50 08:08 Temperature 99.4 F 98.3 F Pulse Rate 110 H 106 H Respiratory 20 20 Rate Blood Pressure 120/67 123/64 O2 Sat by Pulse 95 97 Oximetry - Labs CBC & Chem 7: 09/15/17 20:16 09/15/17 20:16 Labs: Abnormal lab results 09/15/17 09/15/17 Range/Units 20:16 20:16 Plt Count 118 L (140-440) K/mm3 Seg Neutrophils % 74.5 H (40.0-70.0) % Sodium 131 L (137-145) mmol/L Chloride 97.1 L (98-107) mmol/L Carbon Dioxide 19 L (22-30) mmol/L Glucose 104 H (65-100) mg/dL Calcium 6.5 L D (8.4-10.2) mg/dL Total Protein 5.6 L (6.3-8.2) g/dL Albumin 2.9 L (3.9-5) g/dL
--- NOTE | 2017-09-16 14:14 | Consultation ---
History of Present Illness Consult date: 09/16/17 History of present illness: neuro exam is now normal this is likely eclampsia related seizure based on the entire OB history still we should get CT of the head and treat ptient like eclampsia related I explained the disorder to her and her exam is normal provided CT of head is OK can go chuck per OB thanks Past History Social history: lives with family, full code. denies: smoking, alcohol abuse, prescription drug abuse, IV drug use Medications and Allergies Allergies Allergy/AdvReac Type Severity Reaction Status Date / Time No Known Allergies Allergy Verified 09/14/17 15:28 Home Medications Medication Instructions Recorded Confirmed Last Taken Type No Known Home Medications [No 09/15/17 09/15/17 Unknown History Reported Home Medications] Active Meds: Active Medications Acetaminophen (Tylenol) 650 mg PO Q4H PRN PRN Reason: Pain, Mild (1-3) Acetaminophen/Hydrocodone Bitart ([place] 5/325) 2 each PO Q4H PRN PRN Reason: Pain, Moderate (4-6) Last Admin: 09/16/17 09:10 Dose: 2 each Bisacodyl (Dulcolax) 10 mg [place] QDAY PRN PRN Reason: constipation unrelieved by MOM Ibuprofen (Motrin) 800 mg PO Q8H PRN PRN Reason: Pain, Mild (1-3) Last Admin: 09/16/17 05:48 Dose: 800 mg Ketorolac Tromethamine (Toradol) 30 mg IV Q6H PRN PRN Reason: Pain, Moderate (4-6) Stop: 09/19/17 15:45 Last Admin: 09/15/17 16:15 Dose: 30 mg Magnesium Hydroxide (Milk Of Magnesia) 30 ml PO QHS PRN PRN Reason: Laxative Effect Naloxone HCl (Narcan 0.4 Mg/1 Ml) 0.1 mg IV Q2MIN PRN PRN Reason: Res Rate </= 8 or 02 SAT < 92% Nifedipine (Procardia Xl) 60 mg PO Q12HR [facility] Last Admin: 09/16/17 10:22 Dose: 60 mg Promethazine HCl (Phenergan) 25 mg PO Q6H PRN PRN Reason: Nausea And Vomiting Sodium Chloride (Sodium Chloride Flush Syringe 10 Ml) 10 ml IV PRN KIMBERLY Witch [place]/Glycerin (Tucks Pad) 1 each TP PRN PRN PRN Reason: Hemorrhoids/cleansing/soothing Physical Examination - Vital Signs Vital Signs: Vital Signs Temp Pulse Resp BP Pulse Ox 98.2 F 98 H 16 149/108 100 09/14/17 13:58 09/14/17 13:58 09/14/17 13:58 09/14/17 13:58 09/14/17 13:58 Results - Laboratory Findings CBC and BMP: 09/15/17 20:16 09/15/17 20:16 Abnormal Lab Findings: Abnormal Labs 09/14/17 09/14/17 09/14/17 15:23 15:23 15:23 Plt Count 111 L [place] % (Auto) 8.9 H Seg Neutrophils % Seg Neutrophils # POC ABG pH POC ABG pCO2 Sodium Chloride Carbon Dioxide 18 L Glucose Uric Acid Calcium 8.1 L Magnesium Lactate Dehydrogenase Total Protein 5.6 L Albumin 3.0 L 09/14/17 09/14/17 09/14/17 15:23 15:23 17:34 Plt Count [place] % (Auto) Seg Neutrophils % Seg Neutrophils # POC ABG pH 7.271 L POC ABG pCO2 34.0 L Sodium Chloride Carbon Dioxide 18 L Glucose Uric Acid 9.9 H Calcium 8.1 L Magnesium Lactate Dehydrogenase 285 H Total Protein 5.7 L Albumin 2.9 L 09/14/17 09/14/17 09/15/17 20:53 20:53 02:46 Plt Count 103 L [place] % (Auto) Seg Neutrophils % 79.4 H Seg Neutrophils # 7.9 H POC ABG pH POC ABG pCO2 Sodium Chloride Carbon Dioxide 18 L Glucose Uric Acid Calcium 7.7 L Magnesium 5.20 H 6.60 H Lactate Dehydrogenase Total Protein 5.2 L Albumin 2.8 L 09/15/17 09/15/17 09/15/17 09:22 20:16 20:16 Plt Count 118 L [place] % (Auto) Seg Neutrophils % 74.5 H Seg Neutrophils # POC ABG pH POC ABG pCO2 Sodium 131 L Chloride 97.1 L Carbon Dioxide 19 L Glucose 104 H Uric Acid Calcium 6.5 L D Magnesium 7.40 H Lactate Dehydrogenase Total Protein 5.6 L Albumin 2.9 L
--- NOTE | 2017-09-16 15:10 | Cat Scan Report ---
CT HEAD WITHOUT CONTRAST: HISTORY: Altered mental status. TECHNIQUE: Sequential 2.5mm CT images. COMPARISON: none. FINDINGS: Cerebral Parenchyma: Within normal limits. Cerebellum: Within normal limits. Brainstem: Within normal limits. Ventricles: Normal. Sella: Normal. Extra-axial spaces: Normal. Basal Cisterns: Normal. Intracranial Hemorrhage: None. Midline Shift: None. Calvarium: Normal. Sinuses: Normal. Mastoid Air Cells: Normal. Visualized Orbits: Normal. IMPRESSION: Cranial CT scan within normal limits.
[2017-09-16] MEDS ORDERED: XANAX PO ONE (19:00)
--- NOTE | 2017-09-17 01:12 | Event Note ---
Date: 09/17/17 Called by RN last pm b/c patient thought she was about to have a seizure, according to RN, SELINA. CT scan report reviewed, order given for Xanax x1 and observe closely. Went to see patient however she was sleeping, VS reviewed
[2017-09-17] MEDS: MOTRIN PO PRN ×3 (05:48→23:37)
[2017-09-17] MEDS: NORCO 5/325 PO PRN ×3 (05:48→15:41)
--- NOTE | 2017-09-17 08:03 | Progress Note ---
Assessment and Plan patient resting w/o complaints, Lochia scant, VSSAF, incision dry and intact, rianna present. reviewed with patient and mother that Neuro and Dr. Rich feel she is stable for d/c home. She needs appointment wednesday at her doctor to have stable removed and blood pressure check. If she is unable to be seen at [facility], she can come to our office and be seen. All questions addressed, precautions reviewed. - Patient Problems (1) Eclampsia Onset Date: ~09/14/17 Current Visit: Yes Status: Acute (2) delivery delivered Onset Date: ~09/14/17 Current Visit: Yes Status: Acute Subjective - Subjective Date of service: 09/17/17 Principal diagnosis: Day # 3 s/p section; Eclampsia Interval history: ( records reviewed) reports JAMES x 3 days, routine visit yesterday with [facility], normotensive w / neg urine protein. began care @ 20 weeks with [facility]C 10/16/17 by LMP- 35+3 weeks Patient denies medical or surgical hx (EAB hx D&E in 2011 - noted on records not divulged by patient) HSV II + hx emotional concerns involving family and - per records, patient did not divulge this information. Patient reports: appetite normal, voiding normally, pain well controlled, flatus , ambulating normally, no dizzy ambulation, no nauseated : in NICU Objective - Vital Signs Latest vital signs: Vital Signs Temp Pulse Pulse Resp BP BP Pulse Ox 09/17/17 04:45 98.6 F 105 H 20 111/59 95 09/17/17 00:20 98.2 F 112 H 18 124/69 96 09/16/17 20:34 98.7 F 99 H 20 104/50 97 09/16/17 19:45 90 99 09/16/17 16:05 98.4 F 96 H 18 108/56 97 09/16/17 12:13 98.6 F 99 H 20 113/62 94 09/16/17 08:08 98.3 F 106 H 20 123/64 97 Intake and Output 09/16/17 09/17/17 09/17/17 23:59 07:59 15:59 Intake Total 620 Balance 620 Intake: Oral 620 Other: Total, Intake Amount 620 Voiding Method Toilet Toilet # Voids Void 3 # Bowel Movements 0 - Exam Breasts: Present: normal Cardiovascular: Present: Regular rate Lungs: Present: Clear to auscultation Abdomen: Present: normal appearance, soft Vulva: both: normal Uterus: Present: normal, firm, fundal height at umbilicus Extremities: Present: normal Deep Tendon Reflex Grade: Normal +2 Incision: Present: normal, dry, intact (rianna present)
--- NOTE | 2017-09-17 08:06 | Discharge Summary ---
Providers - Providers Date of Admission: 09/14/17 14:49 Date of discharge: 09/17/17 Attending physician: VERONICA RESENDIZ 09/14/17 17:59 Consult to Balance Wheel Hand Filer [CONS] Routine Reason For Exam: 09/16/17 09:29 Consult to Physician [CONS] Routine Consulting Provider: MAYANK DILL Reason For Exam: s/p eclamptic seizure Place consult to:: Neurology Notified:: Physician Office Phone number called:: [phone] Was contact made?: Yes If yes, spoke with:: Sofie Time called:: 10:05 Comment:: sofie stated that she will let physician know Primary care physician: SUSU GONZALEZ Hospitalization Reason for admission: other (seizure - eclamptic) Delivery: Procedure: primary low transverse Incision: normal, dry, intact Other procedures: none complications: none Discharge diagnosis: delivery baby: female Hospital course: c/s delivery d/t distress and eclampsia Condition at discharge: Good Disposition: DC- TO HOME OR SELFCARE - Discharge Diagnoses (1) Eclampsia Status: Acute (2) delivery delivered Status: Acute Plan - Discharge Medications Prescriptions: Ibuprofen [Motrin 800 MG tab] 800 mg PO TID PRN #30 tablet PRN Reason: Pain oxyCODONE /ACETAMINOPHEN [Percocet 5/325 mg] 1 - 2 tab PO Q4HR PRN #30 tablet PRN Reason: Pain - Provider Discharge Summary Activity: routine, no sex for 6 weeks, no heavy lifting 4 weeks, no strenuous exercise Diet: routine Instructions: routine Additional instructions: [] Smoking cessation referral if applicable(refer to patient education folder for contact #) [] Refer to [facility] Booklet Call your doctor immediately for: * Fever > 100.5 * Heavy vaginal bleeding ( >1 pad per hour) * Severe persistent headache * Shortness of breath * Reddened, hot, painful area to leg or breast * Drainage or odor from incision. * Keep incision clean and dry at all times and follow doctor's instructions regarding bathing/showering - Follow up plan Follow up: SUSU GONZALEZ MD [Primary Care Provider] - 7 Days NAMAN PRIETO MD [Staff Physician] - 09/21/17 (Congratulations! Please call [phone] to schedule your incision and b/p check 09/21/17, or call your provider to schedule appointment. Vevay will need to be removed then as well. Call for any headache, changes in vision or upper abdominal pain. )
--- NOTE | 2017-09-17 09:49 | Consultation ---
History of Present Illness Consult date: 09/17/17 History of present illness: CT of the head entirely normal therefore can safely be dischraged seizures are eclampsia not epilepsy or structural brain lesion Past History Social history: lives with family, full code. denies: smoking, alcohol abuse, prescription drug abuse, IV drug use Medications and Allergies Allergies Allergy/AdvReac Type Severity Reaction Status Date / Time No Known Allergies Allergy Verified 09/14/17 15:28 Home Medications Medication Instructions Recorded Confirmed Last Taken Type Ibuprofen [Motrin 800 MG tab] 800 mg PO TID PRN #30 tablet 09/16/17 Unknown Rx oxyCODONE /ACETAMINOPHEN [Percocet 1 - 2 tab PO Q4HR PRN #30 tablet 09/16/17 Unknown Rx 5/325 mg] Active Meds: Active Medications Acetaminophen (Tylenol) 650 mg PO Q4H PRN PRN Reason: Pain, Mild (1-3) Acetaminophen/Hydrocodone Bitart ([place] 5/325) 2 each PO Q4H PRN PRN Reason: Pain, Moderate (4-6) Last Admin: 09/17/17 05:48 Dose: 2 each Bisacodyl (Dulcolax) 10 mg MS QDAY PRN PRN Reason: constipation unrelieved by MOM Ibuprofen (Motrin) 800 mg PO Q8H PRN PRN Reason: Pain, Mild (1-3) Last Admin: 09/17/17 05:48 Dose: 800 mg Ketorolac Tromethamine (Toradol) 30 mg IV Q6H PRN PRN Reason: Pain, Moderate (4-6) Stop: 09/19/17 15:45 Last Admin: 09/15/17 16:15 Dose: 30 mg Magnesium Hydroxide (Milk Of Magnesia) 30 ml PO QHS PRN PRN Reason: Laxative Effect Naloxone HCl (Narcan 0.4 Mg/1 Ml) 0.1 mg IV Q2MIN PRN PRN Reason: Res Rate </= 8 or 02 SAT < 92% Nifedipine (Procardia Xl) 60 mg PO Q12HR [facility] Last Admin: 09/16/17 21:55 Dose: 60 mg Promethazine HCl (Phenergan) 25 mg PO Q6H PRN PRN Reason: Nausea And Vomiting Sodium Chloride (Sodium Chloride Flush Syringe 10 Ml) 10 ml IV PRN [facility] Witch [place]/Glycerin (Tucks Pad) 1 each TP PRN PRN PRN Reason: Hemorrhoids/cleansing/soothing Physical Examination - Vital Signs Vital Signs: Vital Signs Temp Pulse Resp BP Pulse Ox 98.2 F 98 H 16 149/108 100 09/14/17 13:58 09/14/17 13:58 09/14/17 13:58 09/14/17 13:58 09/14/17 13:58 Results - Laboratory Findings CBC and BMP: 09/15/17 20:16 09/15/17 20:16 Abnormal Lab Findings: Abnormal Labs 09/14/17 09/14/17 09/14/17 15:23 15:23 15:23 Plt Count 111 L Robertson % (Auto) 8.9 H Seg Neutrophils % Seg Neutrophils # POC ABG pH POC ABG pCO2 Sodium Chloride Carbon Dioxide 18 L Glucose Uric Acid Calcium 8.1 L Magnesium Lactate Dehydrogenase Total Protein 5.6 L Albumin 3.0 L 09/14/17 09/14/17 09/14/17 15:23 15:23 17:34 Plt Count Robertson % (Auto) Seg Neutrophils % Seg Neutrophils # POC ABG pH 7.271 L POC ABG pCO2 34.0 L Sodium Chloride Carbon Dioxide 18 L Glucose Uric Acid 9.9 H Calcium 8.1 L Magnesium Lactate Dehydrogenase 285 H Total Protein 5.7 L Albumin 2.9 L 09/14/17 09/14/17 09/15/17 20:53 20:53 02:46 Plt Count 103 L Robertson % (Auto) Seg Neutrophils % 79.4 H Seg Neutrophils # 7.9 H POC ABG pH POC ABG pCO2 Sodium Chloride Carbon Dioxide 18 L Glucose Uric Acid Calcium 7.7 L Magnesium 5.20 H 6.60 H Lactate Dehydrogenase Total Protein 5.2 L Albumin 2.8 L 09/15/17 09/15/17 09/15/17 09:22 20:16 20:16 Plt Count 118 L Robertson % (Auto) Seg Neutrophils % 74.5 H Seg Neutrophils # POC ABG pH POC ABG pCO2 Sodium 131 L Chloride 97.1 L Carbon Dioxide 19 L Glucose 104 H Uric Acid Calcium 6.5 L D Magnesium 7.40 H Lactate Dehydrogenase Total Protein 5.6 L Albumin 2.9 L
[2017-09-17] MEDS: PROCARDIA XL PO SCH ×2 (12:09→23:33)
--- NOTE | 2017-09-17 15:21 | Event Note ---
Date: 09/17/17 Patient has appointment with [facility] Wednesday09/21/17, she has staple remover kit and all prescriptions. procardia has been sent electronically, she has paper rx for percocet and motrin.
--- NOTE | 2017-09-17 22:59 | Progress Note ---
Subjective Date of service: 09/17/17 Principal diagnosis: Day # 3 s/p section; Eclampsia; Headache Interval history: Called to see patient regarding headaches. Patient had a due to eclampsia three days ago under spinal. She reports that her headaches started before the and spinal. She has not noticed that they have worsened. Headaches come and go and are not constant. She does not report headaches getting better when laying flat. Light does make headaches worse. Denies weakness or N/V or fevers. Discussed with patient the possibility of having a spinal headache and treatment with epidural blood patch. However, I am not strongly convinced that this is a spinal headache. For now, she would like to take the conservative route and will return for epidural blood patch if headaches worsening. Objective - Constitutional Vitals: Vital Signs - 12hr 09/17/17 14:47 Pulse Rate 98 H Blood Pressure 107/53 O2 Sat by Pulse 98 Oximetry - Labs CBC & Chem 7: 09/15/17 20:16 09/15/17 20:16
[2017-09-18] MEDS: NORCO 5/325 PO PRN (08:20)
[2017-09-18 09:46] VITALS: BP 118/72
[2017-09-18] MEDS: PROCARDIA XL PO SCH (11:35)
== END 2017-09-18 11:50 | disposition home or self-care (01) | DRG 765 ==
LOC: ED 13:57 → LD 14:49 → APU 16:31 → CC1 17:21 → OB 09-15 15:06
PROVIDERS: ADMIT Obstetrics & Gynecology; ATTEND Obstetrics & Gynecology
PROC: 10D00Z1 Extraction of Products of Conception, Low, Open Approach (ICD-10-PCS; principal; 2017-09-14)
PROC: 4A033R1 Measurement of Arterial Saturation, Peripheral, Percutaneous Approach (ICD-10-PCS; 2017-09-14)
DX: O60.14X0 Preterm labor third trimester with preterm delivery third trimester, not applicable or unspecified (principal); O15.1 Eclampsia complicating labor; O77.8 Labor and delivery complicated by other evidence of fetal stress; O11.4 Pre-existing hypertension with pre-eclampsia, complicating childbirth; O99.214 Obesity complicating childbirth; E66.9 Obesity, unspecified; O98.52 Other viral diseases complicating childbirth; B00.9 Herpesviral infection, unspecified; Z37.0 Single live birth; Z3A.35 35 weeks gestation of pregnancy; Z68.35 Body mass index [BMI] 35.0-35.9, adult
CPT/HCPCS: 36415; 36600; 70450; 80048; 80053; 80074; 80307; 81001; 82565; 82803; 83615; 83735; 84450; 84460; 84550; 85025; 86706; 86762; 86803; 86850; 86900; 86901; 88307; 99211; A6250; C1765; G0463; J0360; J0690; J1200; J1885; J2270; J2370; J2405; J2590; J2765; J3010; J3475; J7120